=== PATIENT | male | born 1970 | race Caucasian/White ===

== ENCOUNTER 2017-06-24 17:32 | Emergency (ER) | payer OTHER ==
[~2017-06-24] VITALS: Ht 177.8 cm; Wt 114.2 kg
[2017-06-24 17:38] VITALS: Ht 177.8 cm; Wt 114.2 kg
--- NOTE | 2017-06-24 18:44 | ERD ---
ER Documentation Chief Complaint Chief Complaint Dizziness with R. ear pain x 2 days HPI This 47 yr old male pt present to ED for fatigue facial pain , fatigue, with dizziness. pt has HTN stopped taking Losartin/HCTZ ROS All systems reviewed and are negative except as per history of present illness. Allergies Allergies: Coded Allergies: No Known Allergy (Verified , 06/24/17) PMhx/Soc Hx Cardiac Disorders: Yes (HTN) Hx Alcohol Use: Yes Hx Substance Use: No Hx Tobacco Use: No Smoking Status: Never smoker Physical Exam Vitals Vital Signs Date Time Temp Pulse Resp B/P Pulse Ox O2 Delivery O2 Flow Rate FiO2 06/24/17 17:38 81 18 175/86 97 Physical Exam Const: Obese, well-appearing, well-hydrated 47-year-old male patient no acute distress Head: Eyes: ENT: Lateral tympanic membranes translucent, auditory canals are clear, nasal mucosa is moist, nonedematous, pharynx is pink, uvula is midline. Neck: Full range of motion..~ No meningismus. Resp: Clear to auscultation bilaterally Cardio: Regular rate and rhythm, no murmurs Abd: Soft, non tender, non distended. Normal bowel sounds Skin: Back: Ext: No cyanosis, or edema Neur: Alert and oriented Face: EOMI, face and pharynx with normal sensation and function Motor: Normal strength throughout Sensation: Normal sensation throughout Speech: Normal Cerebel: Normal coordination Normal gait Psych: Normal Mood and Affect Procedures/MDM This 47-year-old male patient presents to emergency department for evaluation of fatigue, left-sided facial pain, dizziness. Patient reports symptoms have been intermittent and worsening. Patient states that 3 weeks ago he stopped his blood pressure medication because his blood pressure was normal did not think he needed it any longer, he has not restarted his blood pressure medication, today's blood pressure is 175/86. Emergency room course includes history and physical exam, patient is neurologically intact without evidence of neurovascular incident. Patient's speech is clear, hand analytical tech equal, smile is symmetric, without headache, change in vision, or pain. Patient denies chest pain shortness of breath, dizziness or palpitations at this time. Spent 15 minutes with patient explaining the importance of taking medication as prescribed, never discontinuing medication without discussing it with your physician first. Patient states he has an appointment with his doctor in July. Patient instructed to take his own losartan/HTCZ, plan to discharge patient home with strict instructions to take all medications as prescribed and follow-up with primary care physician in July or sooner. Lifestyle modifications discussed, with weight loss, low-cholesterol diet, increasing activity. Patient is stable with no new complaints during ER course, clinically there is no current evidence to suggest CVA, sepsis, acute abdomen, acute coronary syndromes, pulmonary embolism or any other emergent condition appearing to require further evaluation or hospitalization. I feel the patient is stable for discharge at this time. I have discussed results, examination findings, the treatment plan with the patient and family present prior to discharge. Indications for emergent reevaluation, side effects of medication were also discussed. All questions were answered. Patient verbalizes understanding and agrees with plan of care. Departure Diagnosis: Primary Impression: HTN (hypertension) Hypertension type: unspecified Qualified Code: I10 - Hypertension, unspecified type Condition: Good Patient Instructions: Hypertension, Established Additional Instructions: Thank you for for coming to [facility] for your care today. Please ask your nurse or provider if you have questions about your care today and do not leave until all your questions have been answered. Please use any medications given as directed and follow-up with your doctor (or the doctor you were referred to) in the next 2-3 days. If you do not have a primary care doctor you may follow up at the [facility] (listed below). You may also use motrin and tylenol as needed for fever and/or pain unless instructed otherwise by your provider or nurse. Indications for more urgent follow-up have been discussed, but you may return to the Emergency Department at ANY time for any worrisome or worsening symptoms. If you have abdominal pain, please know that no test or exam you received is perfect and you should follow up within 8 hours for continued pain. If you had any imaging studies today, such as an X-Ray or CT Scan, these studies will be reviewed later by a radiologist. You will be called if there are important findings that were not identified today, so make sure the contact information you provided at registration is correct. If you received any narcotic pain control medicine today, such as Vicodin, Morphine or Dilaudid, your coordination and judgment may be affected for a number of hours. Please do not drive or operate heavy machinery, and you may want someone to assist you at home. If you were given a prescription for narcotic medication, be aware that it is very addictive- use sparingly and only if necessary. HANNAH THOMAS Jun 24, 2017 18:44
== END 2017-06-24 20:05 | disposition home or self-care (01) ==
LOC: FTE 17:32
DX: I10 Essential (primary) hypertension (principal)
CPT/HCPCS: 99282